=== PATIENT | male | born 1940 | race Hispanic/Latino ===

== ENCOUNTER → 2017-08-19 | Outpatient (CLI) | payer OTHER, MEDICARE ==
[~2017-08-19] MED LIST: AMLO10TA2 PO; CARV6.25 PO; CLOP75TA32 PO; GLIP5TAB11 PO; LEVO88TA7 PO; LISI40TA4 PO; REGADENOSON 0.4 MG/5 ML PF SYG IVP SCH; TAMS0.4C32 PO
== END | disposition home or self-care (01) ==
LOC: SHCH 08:24
PROVIDERS: ATTEND Internal Medicine Cardiovascular Disease
DX: I25.118 Atherosclerotic heart disease of native coronary artery with other forms of angina pectoris (principal); R05 Cough; R06.00 Dyspnea, unspecified; R42 Dizziness and giddiness
CPT/HCPCS: 78452; 93017; 96374; A9500 ×2; J2785

== ENCOUNTER → 2022-01-08 | Outpatient (CLI) | payer OTHER, MEDICARE ==
[~2022-01-08] MED LIST changes: +ACET325T51 PO; +AMLO-258 PO; -AMLO10TA2 PO; -CARV6.25 PO; -CLOP75TA32 PO; -GLIP5TAB11 PO; +ISOS60TA77 PO; +LEVO50 PO; -LEVO88TA7 PO; -LISI40TA4 PO; +LISI40TA9 PO; +NITR0.4T50 SL; -REGADENOSON 0.4 MG/5 ML PF SYG IVP SCH; +SITA100T12 PO; +TAMS-1 PO; -TAMS0.4C32 PO; +TRAZ-185 PO; +VENL-62 PO
== END | disposition home or self-care (01) ==
LOC: SHCH 10:51
PROVIDERS: ATTEND Internal Medicine Cardiovascular Disease
DX: I25.10 Atherosclerotic heart disease of native coronary artery without angina pectoris (principal); R01.1 Cardiac murmur, unspecified
CPT/HCPCS: 93306